=== PATIENT | female | born 1970 | race Caucasian/White ===

== ENCOUNTER → 2017-11-26 | Outpatient (CLI) | payer BC ==
[~2017-11-26] MED LIST: BENADRYL25 MG PO; CLIN150 PO; DOXY100 PO; Diphenhydramine50 M1 PO; Hydrochlorothia25 MG; INSDET100 SC; LISI5 PO; METF500 PO; METO50 PO; NITR100CA PO; Pepcid40 MG PO; Prednisone20 MG PO; TRAM50 PO
== END ==
LOC: LAB SHORT 09:37 → LAB SRC 09:37
DX: R39.89 Other symptoms and signs involving the genitourinary system (principal)
CPT/HCPCS: 87086

== ENCOUNTER → 2019-02-13 | Outpatient (CLI) | payer BC ==
[2019-02-13 12:19] LABS: Creatinine, Urine Random 91.9 mg/dL (27.00-270.00)
[2019-02-13 12:21] LABS: Microalb/Creat Ratio UR, Rand 7.889 mg/g (0.000-30.000); Microalbumin, Random Urine 7.25 mg/L (0.000-20.000)
== END | disposition home or self-care (01) ==
LOC: LAB 11:20 → LAB SHORT 11:20 → LAB FUT 02-02 11:35
PROVIDERS: Nurse Practitioner Family
DX: E11.9 Type 2 diabetes mellitus without complications (principal)
CPT/HCPCS: 82043; 82570

== ENCOUNTER → 2019-08-10 | Outpatient (CLI) | payer BC ==
[2019-08-10 11:03] LABS: Source, Urine Clean Catch
[2019-08-10 12:46] LABS: Bilirubin, Urine Neg (Neg); Blood, Urine Neg (Neg); Glucose Qualitative, Urine 4+ (Neg); Ketones, Urine Neg (Neg); Leukocyte Esterase, Urine Neg (Neg); Nitrite, Urine Neg (Neg); Protein, Urine Neg (Neg); Urobilinogen, Urine NORM (Normal)
[2019-08-10 12:59] LABS: Appearance, Urine Clear (Clear); Bacteria Not Seen /hpf; Color, Urine Yellow (P-Yellow); Red Blood Cells, Urine Not Seen /hpf (0-2); Squamous Epithelial Cells Rare /hpf (Few); White Blood Cells, Urine Not Seen /hpf (0-5)
== END | disposition home or self-care (01) ==
LOC: LAB SHORT 10:13 → LAB SRC 10:13
PROVIDERS: Nurse Practitioner Family
DX: E11.9 Type 2 diabetes mellitus without complications (principal); R10.9 Unspecified abdominal pain; R94.4 Abnormal results of kidney function studies; Z87.442 Personal history of urinary calculi
CPT/HCPCS: 81001; 81003

== ENCOUNTER → 2019-10-18 | Outpatient (CLI) | payer BC | END | disposition home or self-care (01) | LOC: LAB SHORT 13:15 → LAB 13:15 → LAB FUT 10-11 08:50 | DX: E11.9 Type 2 diabetes mellitus without complications (principal); R10.9 Unspecified abdominal pain; Z87.442 Personal history of urinary calculi | CPT/HCPCS: 36415; 83036 ==

== ENCOUNTER → 2019-10-19 | Outpatient (CLI) | payer BC ==
[2019-10-19 13:41] LABS: Bilirubin, Urine Neg (Neg); Blood, Urine 1+ (Neg); Glucose Qualitative, Urine 4+ (Neg); Ketones, Urine Neg (Neg); Leukocyte Esterase, Urine Neg (Neg); Nitrite, Urine Neg (Neg); Protein, Urine Neg (Neg); Urobilinogen, Urine NORM (Normal)
[2019-10-19 13:54] LABS: Appearance, Urine Clear (Clear); Color, Urine Yellow (P-Yellow)
[2019-10-19 13:55] LABS: Bacteria Rare /hpf; Red Blood Cells, Urine 0-2 /hpf (0-2); Squamous Epithelial Cells Few /hpf (Few); White Blood Cells, Urine Not Seen /hpf (0-5)
== END | disposition home or self-care (01) ==
LOC: LAB SHORT 08:08 → LAB 08:08
PROVIDERS: Nurse Practitioner Family
DX: R10.9 Unspecified abdominal pain (principal); Z87.442 Personal history of urinary calculi
CPT/HCPCS: 81001

== ENCOUNTER → 2019-12-14 | Outpatient (CLI) | payer BC | END | disposition home or self-care (01) | LOC: LAB 15:17 → LAB SHORT 15:17 | DX: N89.8 Other specified noninflammatory disorders of vagina (principal) | CPT/HCPCS: 87070; 87106; 87205 ==

== ENCOUNTER 2020-05-12 06:53 | Day surgery (SDC) | payer BC ==
[~2020-05-12] VITALS: Ht 156 cm; Wt 117.6 kg
[~2020-05-12 06:53] MED LIST changes: +ALBU90OI INH; +ATOR20 PO; +Doxycycline Mo100 M1 PO; +JARDIANCE25 MG PO; +LEVEMIR100 UNIT/1 SC; +Lisinopril-Hct1 EAC4 PO; +TOPI50 PO; +VITAMIN D310 MC4 PO; +ZANAFLEX4 MG PO
--- NOTE | 2020-05-12 07:53 | NUR ---
History, Chart, Medications and Allergies reviewed before start of procedure. Patient confirms NPO status and agrees with scheduled surgery. C/O 3/10 DULL PAIN TO EPIGATRIC AREA, LOWER BACK AND HIPS BILAT.
--- NOTE | 2020-05-12 08:47 | NUR ---
05/12/20 0847 Darlene Cerda History, Chart, Medications and Allergies reviewed before start of procedure.Patient confirms NPO status and agrees with scheduled surgery.3-LEAD EKG REVIEWED WITH PHYSICIAN PRIOR TO START OF PROCEDURE.MONITOR INTACT WITH CONTINUOUS PULSE OXIMETRY AND INTERMITTENT BP.See Anesthesia record
--- NOTE | 2020-05-12 09:22 | NUR ---
PT WITH C/O NAUSEA UPON ENTRY TO STEP. ZOFRAN 4MG IV ADMINISTERED ORDERED. COOL CLOTH APPLIED TO HEAD. SIPS OF SPRITE GIVEN.
--- NOTE | 2020-05-12 09:22 | NUR ---
PT STATES NAUSEA HAS IMPROVED AND STATES NO FURTHER NEEDS AT THIS TIME. WILL CONTINUE TO MONITOR.
--- NOTE | 2020-05-12 12:12 | NUR ---
PT'S IV DC'D AT 0940 AND WAS WNL.
--- NOTE | 2020-05-12 12:13 | NUR ---
PT MEETS CRITERIA FOR DC AT 0945. Patient up to Ambulate independently. Gait steady. Discharge instructions reviewed with patient. Patient verbalizes understanding. Copy given to patient to take home. Discharged via wheelchair to private car for ride home.
== END 2020-05-12 23:13 | disposition home or self-care (01) ==
LOC: ORSCMMR 06:53 → ORD 08:30 → ORSCMMR 08:30
PROVIDERS: Internal Medicine Gastroenterology
PROC: 0DB98ZX Excision of Duodenum, Via Natural or Artificial Opening Endoscopic, Diagnostic (ICD-10-PCS; principal; 2020-05-12 08:30)
PROC: 0DB68ZX Excision of Stomach, Via Natural or Artificial Opening Endoscopic, Diagnostic (ICD-10-PCS; principal; 2020-05-12 08:30)
DX: R10.13 Epigastric pain (principal); R11.2 Nausea with vomiting, unspecified; R19.4 Change in bowel habit; K20.90 Esophagitis, unspecified without bleeding; K29.70 Gastritis, unspecified, without bleeding; E61.1 Iron deficiency; K44.9 Diaphragmatic hernia without obstruction or gangrene; Z87.891 Personal history of nicotine dependence; E11.9 Type 2 diabetes mellitus without complications; E66.01 Morbid (severe) obesity due to excess calories; Z68.42 Body mass index [BMI] 45.0-49.9, adult; Z79.84 Long term (current) use of oral hypoglycemic drugs; Z79.899 Other long term (current) drug therapy
CPT/HCPCS: 82947; 88305; 88342; J2001; J2250; J2405; J2704; J7120

== ENCOUNTER → 2020-05-26 | Outpatient (CLI) | payer BC ==
[2020-05-26 22:07] LABS: Percent Saturation 40.4 % (15.0-50.0)
== END | disposition home or self-care (01) ==
LOC: LAB SHORT 16:57 → LAB 16:57
PROVIDERS: Internal Medicine Hematology & Oncology
DX: D50.0 Iron deficiency anemia secondary to blood loss (chronic) (principal)
CPT/HCPCS: 82728; 83540; 83550

== ENCOUNTER → 2020-06-16 | Outpatient (CLI) | payer BC ==
[2020-06-16 11:10] LABS: Source, Urine Clean Catch
[2020-06-16 13:35] LABS: Appearance, Urine Cloudy (Clear); Bilirubin, Urine Neg (Neg); Blood, Urine 1+ (Neg); Color, Urine Yellow (P-Yellow); Glucose Qualitative, Urine 4+ (Neg); Ketones, Urine Neg (Neg); Leukocyte Esterase, Urine Neg (Neg); Nitrite, Urine Neg (Neg); Protein, Urine Neg (Neg); Urobilinogen, Urine NORM (Normal)
[2020-06-16 13:44] LABS: Amorphous Heavy (0-Heavy)
[2020-06-16 13:46] LABS: Uric Acid Crystals Few /hpf
[2020-06-16 13:47] LABS: Bacteria Few /hpf; Squamous Epithelial Cells Few /hpf (Few); White Blood Cells, Urine 0-2 /hpf (0-5)
== END | disposition home or self-care (01) ==
LOC: LAB SHORT 11:08 → LAB SRC 11:08
PROVIDERS: Nurse Practitioner Family
DX: R10.9 Unspecified abdominal pain (principal); R94.4 Abnormal results of kidney function studies; Z87.442 Personal history of urinary calculi
CPT/HCPCS: 81001; 88108

== ENCOUNTER → 2021-01-29 | Outpatient (CLI) | payer BC ==
[2021-01-31 18:10] LABS: HPV 16 Negative (Negative); HPV 18 Negative (Negative); HPV OTHER HR TYPES Negative (Negative)
== END | disposition home or self-care (01) ==
LOC: LAB SHORT 16:31 → LAB 16:31
PROVIDERS: Family Medicine
DX: Z01.419 Encounter for gynecological examination (general) (routine) without abnormal findings (principal)
CPT/HCPCS: 87624; G0123

== ENCOUNTER → 2021-08-15 | Outpatient (CLI) | payer BC ==
[2021-08-30 13:22] LABS: Stool Occult Bld Immuno 1 Negative (NEGATIVE)
== END | disposition home or self-care (01) ==
LOC: LAB SHORT 12:00
PROVIDERS: Nurse Practitioner Family
DX: D64.9 Anemia, unspecified (principal)
CPT/HCPCS: G0328

== ENCOUNTER 2021-11-25 22:58 | Emergency (ER) | payer BC ==
[~2021-11-25] VITALS: Ht 154.9 cm; Wt 136.1 kg
== END 2021-11-26 01:00 | disposition home or self-care (01) ==
LOC: ER 22:58
DX: M71.22 Synovial cyst of popliteal space [Baker], left knee (principal); E11.9 Type 2 diabetes mellitus without complications; I10 Essential (primary) hypertension; Z79.84 Long term (current) use of oral hypoglycemic drugs; Z79.899 Other long term (current) drug therapy; Z88.6 Allergy status to analgesic agent; Z88.1 Allergy status to other antibiotic agents; Z88.5 Allergy status to narcotic agent; Z88.0 Allergy status to penicillin; Z88.8 Allergy status to other drugs, medicaments and biological substances; Z87.891 Personal history of nicotine dependence
CPT/HCPCS: 73562-LT; 93971

== ENCOUNTER → 2021-12-10 | Outpatient (CLI) | payer BC ==
[2021-12-10 14:20] LABS: Albumin, Blood 3.9 g/dL (3.4-5.0); Albumin/Globulin Ratio 1.3 (0.8-1.8); Bilirubin, Total 0.5 mg/dL (0.1-1.0); Bun/Creatinine Ratio 16.4 (12.0-20.0); Calcium, Blood 9.5 mg/dL (8.5-10.1); Creatinine, Blood 0.85 mg/dL (0.40-1.00); Globulin, Blood 3.1 g/dL (2.2-4.0); Phosphorus, Blood 3.7 mg/dL (2.5-4.9); Potassium, Blood 3.9 mmol/L (3.5-5.5)
== END | disposition home or self-care (01) ==
LOC: LAB SHORT 12:44 → LAB 12:44
PROVIDERS: Internal Medicine Hematology & Oncology
DX: D50.0 Iron deficiency anemia secondary to blood loss (chronic) (principal)
CPT/HCPCS: 80053; 82728; 84100

== ENCOUNTER 2022-03-24 13:30 | Emergency (ER) | payer BC ==
[~2022-03-24] VITALS: Ht 154.9 cm; Wt 136.1 kg
== END 2022-03-24 15:05 | disposition home or self-care (01) ==
LOC: ER 13:30
DX: M79.604 Pain in right leg (principal); I10 Essential (primary) hypertension; E11.9 Type 2 diabetes mellitus without complications; Z79.84 Long term (current) use of oral hypoglycemic drugs; Z79.899 Other long term (current) drug therapy; Z88.0 Allergy status to penicillin; Z88.5 Allergy status to narcotic agent; Z88.6 Allergy status to analgesic agent; Z88.8 Allergy status to other drugs, medicaments and biological substances; Z87.891 Personal history of nicotine dependence
CPT/HCPCS: 93971

== ENCOUNTER 2023-07-08 11:24 | Emergency (ER) | payer OTHER ==
[~2023-07-08] VITALS: Ht 162.6 cm; Wt 90.7 kg
[2023-07-08 11:39] VITALS: BP 158/124
[2023-07-08 12:02] LABS: BASOPHILS ABSOLUTE AUTO 0.01 K/mm3 (0.00-0.23); BASOPHILS PERCENT AUTO 0 % (0-2); EOSINOPHILS ABSOLUTE AUTO 0.14 K/mm3 (0.00-0.68); EOSINOPHILS PERCENT AUTO 2 % (0-6); Hematocrit 43.2 % (33.0-51.0); Hemoglobin 14.5 g/dL (11.5-16.0); IMMATURE GRAN ABSOLUTE AUTO 0.02 K/mm3 (0.00-0.10); IMMATURE GRAN PERCENT AUTO 0 % (0-1); LYMPHOCYTES ABSOLUTE AUTO 1.91 K/mm3 (0.84-5.20); LYMPHOCYTES PERCENT AUTO 25 % (21-46); MONOCYTES ABSOLUTE AUTO 0.47 K/mm3 (0.16-1.47); MONOCYTES PERCENT AUTO 6 % (4-13); Mean Corpuscular HGB 27.7 pg (26.0-34.0); Mean Corpuscular HGB Conc 33.6 g/dL (31.5-36.5); Mean Corpuscular Volume 82 fL (80-100); Mean Platelet Volume 8.6 fL (9.1-12.4); NEUTROPHILS ABSOLUTE AUTO 5.14 K/mm3 (1.96-9.15); NEUTROPHILS PERCENT AUTO 67 % (41-73); Platelet Count 360 K/mm3 (150-400); RDW Coefficient Variation 13.5 % (11.7-14.2); RDW Standard Deviation 40.1 fL (35.1-46.3); Red Blood Cell Count 5.24 M/mm3 (3.80-5.20); White Blood Cell Count 7.69 K/mm3 (4.00-11.30)
[2023-07-08 12:29] LABS: Albumin, Blood 3.5 g/dL (3.4-5.0); Albumin/Globulin Ratio 0.9 (0.8-1.8); Bilirubin, Total 0.6 mg/dL (0.1-1.0); Bun/Creatinine Ratio 17.5 (12.0-20.0); Calcium, Blood 8.7 mg/dL (8.5-10.1); Creatinine, Blood 0.86 mg/dL (0.40-1.00); Globulin, Blood 3.9 g/dL (2.2-4.0); Potassium, Blood 3.9 mmol/L (3.5-5.5); Total Protein, Blood 7.4 g/dL (6.4-8.2)
[2023-07-08 13:27] LABS: Source, Urine Clean Catch
[2023-07-08 13:31] LABS: Appearance, Urine Clear (Clear); Bilirubin, Urine Neg (Neg); Blood, Urine 1+ (Neg); Color, Urine Yellow (P-Yellow); Glucose Qualitative, Urine Neg (Neg); Ketones, Urine Neg (Neg); Leukocyte Esterase, Urine Neg (Neg); Nitrite, Urine Neg (Neg); Protein, Urine 1+ (Neg); Urobilinogen, Urine 1+ (Normal)
[2023-07-08 14:01] LABS: Bacteria Few /hpf; Squamous Epithelial Cells Mod /hpf (Few)
[2023-07-08] MEDS ORDERED: ONDA4ODT MM (14:27)
[2023-07-08] MEDS ORDERED: NAPR500ERA PO (14:27)
== END 2023-07-08 14:49 | disposition home or self-care (01) ==
LOC: ER 11:24
PROVIDERS: Physician Assistant
DX: R10.31 Right lower quadrant pain (principal); N20.0 Calculus of kidney; I10 Essential (primary) hypertension; E11.9 Type 2 diabetes mellitus without complications; Z88.0 Allergy status to penicillin; Z88.1 Allergy status to other antibiotic agents; Z88.5 Allergy status to narcotic agent; Z88.8 Allergy status to other drugs, medicaments and biological substances; Z88.6 Allergy status to analgesic agent; Z79.899 Other long term (current) drug therapy; Z79.84 Long term (current) use of oral hypoglycemic drugs; Z87.891 Personal history of nicotine dependence
CPT/HCPCS: 74177; 80053; 81001; 83690; 84703; 85025; 87086; 99284-25; Q9967

== ENCOUNTER 2023-10-29 21:13 | Emergency (ER) | payer OTHER ==
[~2023-10-29] VITALS: Ht 154.9 cm; Wt 136.1 kg
[~2023-10-29 21:13] MED LIST changes: +NAPR500ERA PO; +ONDA4ODT MM
[2023-10-30] MEDS ORDERED: Trimethoprim/Sulfamethoxazole DS Tab PO ONE (01:10)
[2023-10-30] MEDS ORDERED: Clindamycin HCl 150 MG Cap PO ONE (01:10)
[2023-10-30] MEDS ORDERED: BACTRIM DS TAB1 EAC1 PO (01:32)
[2023-10-30] MEDS ORDERED: Cleocin HCl150 MG PO (01:32)
[2023-10-30 01:40] VITALS: BP 162/81
== END 2023-10-30 01:41 | disposition home or self-care (01) ==
LOC: ER 21:13
DX: S71.152A Open bite, left thigh, initial encounter (principal); S51.852A Open bite of left forearm, initial encounter; S61.257A Open bite of left little finger without damage to nail, initial encounter; W54.0XXA Bitten by dog, initial encounter; Z88.0 Allergy status to penicillin; Z88.1 Allergy status to other antibiotic agents; Z88.8 Allergy status to other drugs, medicaments and biological substances; Z88.5 Allergy status to narcotic agent; Z79.899 Other long term (current) drug therapy; Z79.84 Long term (current) use of oral hypoglycemic drugs; I10 Essential (primary) hypertension; E11.9 Type 2 diabetes mellitus without complications; Z87.891 Personal history of nicotine dependence
CPT/HCPCS: 12001; 12002; 73130; 99283-25; A9270

== ENCOUNTER → 2023-12-27 | Outpatient (CLI) | payer OTHER ==
[~2023-12-27] MED LIST changes: +ATORVASTATIN CA20 MG PO; +BACTRIM DS TAB1 EAC1 PO; +Cleocin HCl150 MG PO; +FUROSEMIDE20 MG PO; +HYDROCODONE-AC1 EA19 PO; +LISI20 PO; +MONDOXYNE NL100 MG PO; +PRED20 PO; +TOPI25 PO
[2023-12-27 14:21] LABS: BASOPHILS ABSOLUTE AUTO 0.02 K/mm3 (0.00-0.23); BASOPHILS PERCENT AUTO 0 % (0-2); EOSINOPHILS ABSOLUTE AUTO 0.23 K/mm3 (0.00-0.68); EOSINOPHILS PERCENT AUTO 3 % (0-6); Hematocrit 41.7 % (33.0-51.0); Hemoglobin 13.7 g/dL (11.5-16.0); IMMATURE GRAN ABSOLUTE AUTO 0.03 K/mm3 (0.00-0.10); IMMATURE GRAN PERCENT AUTO 0 % (0-1); LYMPHOCYTES ABSOLUTE AUTO 1.76 K/mm3 (0.84-5.20); LYMPHOCYTES PERCENT AUTO 24 % (21-46); MONOCYTES ABSOLUTE AUTO 0.65 K/mm3 (0.16-1.47); MONOCYTES PERCENT AUTO 9 % (4-13); Mean Corpuscular HGB 27.7 pg (26.0-34.0); Mean Corpuscular HGB Conc 32.9 g/dL (31.5-36.5); Mean Corpuscular Volume 84 fL (80-100); Mean Platelet Volume 8.6 fL (9.1-12.4); NEUTROPHILS ABSOLUTE AUTO 4.72 K/mm3 (1.96-9.15); NEUTROPHILS PERCENT AUTO 64 % (41-73); Platelet Count 379 K/mm3 (150-400); RDW Coefficient Variation 13.9 % (11.7-14.2); RDW Standard Deviation 42.3 fL (35.1-46.3); Red Blood Cell Count 4.95 M/mm3 (3.80-5.20); White Blood Cell Count 7.41 K/mm3 (4.00-11.30)
[2023-12-27 14:31] LABS: Albumin, Blood 3.6 g/dL (3.4-5.0); Albumin/Globulin Ratio 0.9 (0.8-1.8); Bilirubin, Total 0.5 mg/dL (0.1-1.0); Calcium, Blood 9.4 mg/dL (8.5-10.1); Creatinine, Blood 1.13 mg/dL (0.40-1.00); Globulin, Blood 4.2 g/dL (2.2-4.0); Potassium, Blood 3.7 mmol/L (3.5-5.5); Total Protein, Blood 7.8 g/dL (6.4-8.2)
== END ==
LOC: LAB 14:16 → LAB SHORT 14:16
PROVIDERS: Emergency Medicine
DX: R10.32 Left lower quadrant pain (principal)
CPT/HCPCS: 80053; 83690; 85025

== ENCOUNTER 2023-12-31 09:30 | Emergency (ER) | payer OTHER ==
[~2023-12-31] VITALS: Ht 154.9 cm; Wt 149.7 kg
[~2023-12-31 09:30] MED LIST changes: -ATORVASTATIN CA20 MG PO; -FUROSEMIDE20 MG PO; -HYDROCODONE-AC1 EA19 PO; -LISI20 PO; -MONDOXYNE NL100 MG PO; -PRED20 PO; -TOPI25 PO
[2023-12-31] MEDS ORDERED: Methocarbamol 500 MG Tab PO ONE (12:35)
[2023-12-31] MEDS ORDERED: MONDOXYNE NL100 MG PO (13:11)
[2023-12-31] MEDS ORDERED: FUROSEMIDE20 MG PO (13:12)
[2023-12-31] MEDS ORDERED: ATORVASTATIN CA20 MG PO (13:12)
[2023-12-31] MEDS ORDERED: HYDROCODONE-AC1 EA19 PO (13:12)
[2023-12-31] MEDS ORDERED: PRED20 PO (13:12)
[2023-12-31] MEDS ORDERED: LISI20 PO (13:13)
[2023-12-31] MEDS ORDERED: TOPI25 PO (13:13)
[2023-12-31] MEDS ORDERED: METF500 PO (13:13)
[2023-12-31 13:30] VITALS: BP 180/93
[2023-12-31] MEDS ORDERED: ALBU90OI INH (13:46)
[2023-12-31] MEDS ORDERED: DOXY100 PO (13:46)
== END 2023-12-31 13:57 | disposition home or self-care (01) ==
LOC: ER 09:30
DX: J18.9 Pneumonia, unspecified organism (principal); I10 Essential (primary) hypertension; E11.9 Type 2 diabetes mellitus without complications; Z87.891 Personal history of nicotine dependence; Z79.899 Other long term (current) drug therapy; Z88.0 Allergy status to penicillin; Z88.1 Allergy status to other antibiotic agents; Z88.5 Allergy status to narcotic agent; Z88.6 Allergy status to analgesic agent; Z88.8 Allergy status to other drugs, medicaments and biological substances
CPT/HCPCS: 74176; 99285-25; A9270

== ENCOUNTER 2024-01-20 11:27 | Emergency (ER) | payer OTHER ==
[~2024-01-20] VITALS: Ht 154.9 cm; Wt 158.8 kg
[~2024-01-20 11:27] MED LIST changes: +ATORVASTATIN CA20 MG PO; +FUROSEMIDE20 MG PO; +HYDROCODONE-AC1 EA19 PO; +LISI20 PO; +MONDOXYNE NL100 MG PO; +PRED20 PO; +TOPI25 PO
[2024-01-20] MEDS ORDERED: Ipratropium/Albuterol SulF 2.5-0.5MG/3 ML Amp INH PRN (11:40)
[2024-01-20 11:56] LABS: BASOPHILS ABSOLUTE AUTO 0.02 K/mm3 (0.00-0.23); BASOPHILS PERCENT AUTO 0 % (0-2); EOSINOPHILS ABSOLUTE AUTO 0.24 K/mm3 (0.00-0.68); EOSINOPHILS PERCENT AUTO 4 % (0-6); Hematocrit 42.6 % (33.0-51.0); Hemoglobin 13.9 g/dL (11.5-16.0); IMMATURE GRAN ABSOLUTE AUTO 0.02 K/mm3 (0.00-0.10); IMMATURE GRAN PERCENT AUTO 0 % (0-1); LYMPHOCYTES ABSOLUTE AUTO 1.47 K/mm3 (0.84-5.20); LYMPHOCYTES PERCENT AUTO 22 % (21-46); MONOCYTES ABSOLUTE AUTO 0.48 K/mm3 (0.16-1.47); MONOCYTES PERCENT AUTO 7 % (4-13); Mean Corpuscular HGB 27.4 pg (26.0-34.0); Mean Corpuscular HGB Conc 32.6 g/dL (31.5-36.5); Mean Corpuscular Volume 84 fL (80-100); Mean Platelet Volume 8.9 fL (9.1-12.4); NEUTROPHILS ABSOLUTE AUTO 4.32 K/mm3 (1.96-9.15); NEUTROPHILS PERCENT AUTO 66 % (41-73); Platelet Count 323 K/mm3 (150-400); RDW Coefficient Variation 14.2 % (11.7-14.2); RDW Standard Deviation 43.3 fL (35.1-46.3); Red Blood Cell Count 5.07 M/mm3 (3.80-5.20); White Blood Cell Count 6.55 K/mm3 (4.00-11.30)
[2024-01-20] MEDS ORDERED: Albuterol 2.5 MG/3 ML VIAL INH SCH (12:05)
[2024-01-20 12:18] LABS: Albumin, Blood 3.8 g/dL (3.4-5.0); Albumin/Globulin Ratio 1.1 (0.8-1.8); Bilirubin, Total 0.6 mg/dL (0.1-1.0); Bun/Creatinine Ratio 13.2 (12.0-20.0); Calcium, Blood 8.9 mg/dL (8.5-10.1); Creatinine, Blood 0.84 mg/dL (0.40-1.00); Globulin, Blood 3.6 g/dL (2.2-4.0); Potassium, Blood 3.9 mmol/L (3.5-5.5); Total Protein, Blood 7.4 g/dL (6.4-8.2)
[2024-01-20 14:39] VITALS: BP 166/105
[2024-01-20] MEDS ORDERED: MethylPREDNISolone Sod Succ 125 MG Vial IV ONE (15:00)
[2024-01-20] MEDS ORDERED: FLUT1DIS5 INH (15:04)
[2024-01-20] MEDS ORDERED: ALBU2.5V5 INH (15:09)
== END 2024-01-20 15:35 | disposition home or self-care (01) ==
LOC: ER 11:27
PROVIDERS: Physician Assistant
DX: J45.901 Unspecified asthma with (acute) exacerbation (principal); I10 Essential (primary) hypertension; E11.9 Type 2 diabetes mellitus without complications; Z88.0 Allergy status to penicillin; Z88.1 Allergy status to other antibiotic agents; Z88.5 Allergy status to narcotic agent; Z88.6 Allergy status to analgesic agent; Z88.8 Allergy status to other drugs, medicaments and biological substances; Z79.52 Long term (current) use of systemic steroids; Z79.899 Other long term (current) drug therapy; Z79.84 Long term (current) use of oral hypoglycemic drugs; Z87.891 Personal history of nicotine dependence
CPT/HCPCS: 71046; 80053; 85025; 94640; 94644; 94664; 96374; 99285-25; J2919

== ENCOUNTER 2024-04-19 12:48 | Emergency (ER) | payer OTHER ==
[~2024-04-19] VITALS: Ht 157.5 cm; Wt 158.8 kg
[~2024-04-19 12:48] MED LIST changes: +ALBU2.5V5 INH; +FLUT1DIS5 INH
[2024-04-19] MEDS ORDERED: Ondansetron HCl 2 MG / ML 2ML Vial IV ONE (12:55)
[2024-04-19] MEDS ORDERED: Nitroglycerin 0.4 MG SUBL SL ONE (13:00)
[2024-04-19 13:41] LABS: BASOPHILS ABSOLUTE AUTO 0.04 K/mm3 (0.00-0.23); BASOPHILS PERCENT AUTO 0 % (0-2); EOSINOPHILS ABSOLUTE AUTO 0.13 K/mm3 (0.00-0.68); EOSINOPHILS PERCENT AUTO 1 % (0-6); Hematocrit 43.6 % (33.0-51.0); Hemoglobin 14.5 g/dL (11.5-16.0); IMMATURE GRAN ABSOLUTE AUTO 0.04 K/mm3 (0.00-0.10); IMMATURE GRAN PERCENT AUTO 0 % (0-1); LYMPHOCYTES ABSOLUTE AUTO 2.29 K/mm3 (0.84-5.20); LYMPHOCYTES PERCENT AUTO 23 % (21-46); MONOCYTES ABSOLUTE AUTO 0.66 K/mm3 (0.16-1.47); MONOCYTES PERCENT AUTO 7 % (4-13); Mean Corpuscular HGB 27.7 pg (26.0-34.0); Mean Corpuscular HGB Conc 33.3 g/dL (31.5-36.5); Mean Corpuscular Volume 83 fL (80-100); NEUTROPHILS ABSOLUTE AUTO 6.91 K/mm3 (1.96-9.15); NEUTROPHILS PERCENT AUTO 69 % (41-73); RDW Standard Deviation 42.5 fL (35.1-46.3); Red Blood Cell Count 5.24 M/mm3 (3.80-5.20); White Blood Cell Count 10.07 K/mm3 (4.00-11.30)
[2024-04-19 13:46] LABS: Albumin, Blood 3.8 g/dL (3.4-5.0); Bilirubin, Total 0.5 mg/dL (0.1-1.0); Bun/Creatinine Ratio 16.4 (12.0-20.0); Calcium, Blood 9.4 mg/dL (8.5-10.1); Creatinine, Blood 0.91 mg/dL (0.40-1.00); Globulin, Blood 3.8 g/dL (2.2-4.0); Potassium, Blood 3.8 mmol/L (3.5-5.5); Total Protein, Blood 7.6 g/dL (6.4-8.2)
[2024-04-19 14:11] LABS: Mean Platelet Volume 9.1 fL (9.1-12.4); Platelet Count 389 K/mm3 (150-400)
[2024-04-19 16:28] VITALS: BP 149/103
== END 2024-04-19 16:30 | disposition home or self-care (01) ==
LOC: ER 12:48
PROVIDERS: Emergency Medicine
DX: R07.9 Chest pain, unspecified (principal); M25.512 Pain in left shoulder; I10 Essential (primary) hypertension; E11.9 Type 2 diabetes mellitus without complications; Z87.891 Personal history of nicotine dependence; Z79.52 Long term (current) use of systemic steroids; Z79.51 Long term (current) use of inhaled steroids; Z79.84 Long term (current) use of oral hypoglycemic drugs; Z79.899 Other long term (current) drug therapy; Z88.0 Allergy status to penicillin; Z88.1 Allergy status to other antibiotic agents; Z88.5 Allergy status to narcotic agent; Z88.6 Allergy status to analgesic agent; Z88.8 Allergy status to other drugs, medicaments and biological substances
CPT/HCPCS: 71045; 80053; 84484; 85025; 93005; 93010; 99285-25